=== PATIENT | female | born 1945 | race Caucasian/White ===

== ENCOUNTER 2018-03-19 08:00 | Inpatient (IN) | payer OTHER ==
[~2018-03-19] VITALS: Ht 167.6 cm; Wt 81.6 kg
[2018-03-19] MEDS ORDERED: ARICEPT10 MG PO (09:13)
[2018-03-19] MEDS ORDERED: NORVASC5 MG PO (09:14)
[2018-03-19] MEDS ORDERED: COZAAR100 MG PO (09:14)
[2018-03-19] MEDS ORDERED: MAXIMUM D310000 UNIT PO (09:14)
[2018-03-19] MEDS ORDERED: NEURONTIN300 MG PO (09:15)
[2018-03-19] MEDS ORDERED: PEPCID40 MG PO (09:15)
[2018-03-28] MEDS ORDERED: DOCUSATE SODIU100 MG PO (12:59)
[2018-03-28] MEDS ORDERED: GABAPENTIN800 MG PO (12:59)
[2018-03-28] MEDS ORDERED: PERCOCET 5-3251 EACH PO (13:00)
[2018-03-28] MEDS ORDERED: AMOX-CLAV 875-1 EACH PO (13:00)
[2018-03-28] MEDS ORDERED: CLONAZEPAM1 MG PO (13:00)
== END 2018-03-28 17:08 | DRG 455 ==
LOC: O/R 03-27 05:52 → PED 03-27 05:52 → SURH 03-27 08:00 → PED 03-27 15:55
PROVIDERS: Orthopaedic Surgery Orthopaedic Surgery of the Spine
PROC: 0SG0071 Fusion of Lumbar Vertebral Joint with Autologous Tissue Substitute, Posterior Approach, Posterior Column, Open Approach (ICD-10-PCS; 2018-03-27)
PROC: 0ST20ZZ Resection of Lumbar Vertebral Disc, Open Approach (ICD-10-PCS; 2018-03-27)
PROC: 0SG00AJ Fusion of Lumbar Vertebral Joint with Interbody Fusion Device, Posterior Approach, Anterior Column, Open Approach (ICD-10-PCS; 2018-03-27)
PROC: 07DS3ZZ Extraction of Vertebral Bone Marrow, Percutaneous Approach (ICD-10-PCS; 2018-03-27)
PROC: 0SG00A0 Fusion of Lumbar Vertebral Joint with Interbody Fusion Device, Anterior Approach, Anterior Column, Open Approach (ICD-10-PCS; principal; 2018-03-27 13:00)
DX: M48.061 Spinal stenosis, lumbar region without neurogenic claudication (principal); M47.26 Other spondylosis with radiculopathy, lumbar region; M51.16 Intervertebral disc disorders with radiculopathy, lumbar region; I10 Essential (primary) hypertension; G30.8 Other Alzheimer's disease; F02.80 Dementia in other diseases classified elsewhere, unspecified severity, without behavioral disturbance, psychotic disturbance, mood disturbance, and anxiety